=== PATIENT | female | born 1980 | race Caucasian/White ===

== ENCOUNTER 2020-08-28 21:21 | Emergency (ER) | payer OTHER, SELFPAY ==
--- NOTE | ~2020-08-28 | CT_ITS ---
EXAMINATION: CT chest wo con EXAM DATE: 08/29/2020 00:39 INDICATION: Mediastinal mass. TECHNIQUE: Spiral CT of the chest without contrast. Axial, coronal and sagittal images were reviewe d. Coronal maximum intensity pixel images of chest reviewed. The dose-length product (DLP) for this examination was 649.50 mGy-cm. The exposure was tailored according to patient size (auto mA exposur e control), and iterative reconstruction (ASIR) was used as additional dose reduction technique. The re is no prior study for comparison. FINDINGS: Small nodules of ill-defined soft tissue in the anterior mediastinum consistent with thymic residual. The lungs are clear. There are no pleural or pericardial effusions. Tracheobronchial t ree is patent. There is no mediastinal, hilar or axillary lymphadenopathy. There is no pneumothor ax. Heart normal in size. No evidence of coronary arterial calcification. Upper abdomen is unrem arkable. There is mild thoracic spondylosis without osteoblastic or osteolytic lesions identified. IMPRESSION: 1. Small soft tissue densities anterior mediastinum consistent with residual thymic tissue. Reviewed, dictated and finalized at location A. P TECHNICIAN IMPRESSION: 1. Small soft tissue densities anterior mediastinum consistent with residual t hymic tissue.
--- NOTE | ~2020-08-28 | CT_ITS ---
EXAMINATION: CT abdomen pelvis wo con DATE: 08/28/2020 23:17 INDICATION: Flank pain TECHNIQUE: Computed tomography (CT) of the abdomen and pelvis was performed without intravenous contr ast. Automated exposure control and iterative reconstruction technique were employed. The dose-length product was 1495.57 mGy-cm. COMPARISON: None FINDINGS: Lung bases are clear. Heart size is normal. No pericardial or pleural effusion. Partially visualized a small amount of soft tissue density interspersed with fat anterior to the ascending thoracic aorta which could represent residual thymic tissue. Small region of focal hepatic steatosis at the ligament um teres. Gallbladder, spleen, pancreas, bilateral adrenal glands and kidneys are normal. No urolithi asis or hydronephrosis. 1.5 cm cyst/follicle and small amount of likely physiologic fluid at the left adnexa. Bladder, anteverted uterus and right adnexa are unremarkable. There are few sigmoid divertic henny without adjacent inflammatory change to suggest diverticulitis. Small bowel and appendix are norm al. No pathologically enlarged abdominal or pelvic lymphadenopathy. Mild lumbar and moderate lower th oracic spondylosis. IMPRESSION: 1. No urolithiasis, hydronephrosis or other acute intra-abdominal/pelvic process. 2. Small amount of soft tissue density interspersed with fat likely partially visualized in the anter ior mediastinum and likely representing residual thymic tissue. Could consider follow-up low-dose non contrast chest CT for more complete evaluation. Reviewed, dictated and finalized at location A. WELL PUMPER IMPRESSION: 1. No urolithiasis, hydronephrosis or other acute intra-abdominal/pelvic proces s. 2. Small amount of soft tissue density interspersed with fat likely partially v isualized in the anterior mediastinum and likely representing residual thymic t issue. Could consider follow-up low-dose noncontrast chest CT for more complete evaluation.
[2020-08-28 21:25] VITALS: BP 137/90; PULSE 95; RESP 18; TEMP 36.4; O2SAT 98
[2020-08-28 21:52] LABS: Add Urine Microscopic? YES; Appearance Urine Clear (Clear); Bilirubin Urine Negative (Negative); Blood Urine Negative (Negative); Color Urine Yellow (Yellow); Glucose Urine UA Negative (Negative); Ketones Urine Negative (Negative); Leukocyte Esterase Ur 1+ LEU/UL (Negative); Mucus Urine Rare /lpf; Nitrate Urine Negative (Negative); Protein Urine Negative (Negative); RBC Urine 0-2 /hpf (0-2); Specific Grav Ur 1.019 (1.001-1.035); Squamous Epithelial Cell Urine Few /hpf (Few); Urobilinogen Urine Negative mg/dL (<2.0); WBC Urine 0-3 /hpf
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
--- NOTE | 2020-08-29 01:19 | PC.NURSE ---
per shireen chino, do not give med ordered to pt at this time.
[2020-08-29 01:20] VITALS: BP 108/68; PULSE 78; RESP 22; O2SAT 99
== END 2020-08-29 01:21 | disposition home or self-care (01) ==
PROVIDERS: Emergency Provider Emergency Medicine; PCP Internal Medicine Infectious Disease
DX: M54.5 Low back pain (principal)
CPT/HCPCS: 71250; 74176; 81001; 81025; 99284

== ENCOUNTER 2021-10-08 16:29 | Emergency (ER) | payer OTHER, SELFPAY ==
--- NOTE | ~2021-10-08 | CT_ITS ---
EXAMINATION: CT abdomen pelvis w con INDICATION: Left CVA tenderness and left lower quadrant pain TECHNIQUE: Computed tomographic images of the abdomen and pelvis were obtained after the administrati on of 100 cc of Omnipaque 350 intravenous contrast. The dose-length product (DLP) was 1474.80 mGy-cm. Automated exposure control and iterative reconstruction technique were employed. COMPARISON: 08/28/2020 FINDINGS: The lung bases are clear. The heart size is normal. The liver, spleen, pancreas, gallbladde r, and adrenal glands are normal. The kidneys are unremarkable. No stones are identified in the kidne ys, ureters, or bladder. There is no hydronephrosis or hydroureter. No pathologically enlarged abdomi nal or pelvic lymph nodes are identified. There is no free intraperitoneal gas or evidence of bowel o bstruction. The mobile cecum is in the left midabdomen. The appendix is normal. IMPRESSION: 1. No CT correlate for the patient's symptoms. Reviewed, dictated and finalized at location F. SORTER
[2021-10-08 16:31] VITALS: BP 144/87; PULSE 89; RESP 16; TEMP 36.2; O2SAT 100
--- NOTE | 2021-10-08 16:50 | ED.GENADULT ---
HPI - General Adult General Chief complaint: Back Pain/Injury Stated complaint: L FLANK/ABD PAIN X3D Time Seen by Provider: 10/08/21 16:34 Source: patient and RN notes reviewed Limitations: no limitations History of Present Illness HPI narrative: 41-year-old female with history of urinary tract infection presenting to the emergency department for evaluation of left flank pain with associated lower abdominal pain. Patient states symptoms have been ongoing for the past 2 days. Patient states that this is typical of her urinary tract symptoms including the flank pain. Patient denies any prior history of kidney stones. Patient denies any vaginal discharge. Patient states she did have some possible blood in her urine today. Related Data Home Medications Medication Instructions Recorded Confirmed albuterol sulfate INHALATION 08/28/20 famotidine 08/28/20 fluticasone propionate INTRANASAL 08/28/20 Allergies Allergy/AdvReac Type Severity Reaction Status Date / Time No Known Allergies Allergy Verified 08/28/20 21:28 Review of Systems Review of Systems: CONSTITUTIONAL: Denies fever, chills, or sweats. EYES: Denies visual changes, redness, or discharge. ENT: Denies rhinorrhea, congestion, sore throat, or otalgia. CARDIOVASCULAR: Denies chest pain, palpitations, or edema. RESPIRATORY: Denies cough or dyspnea. GASTROINTESTINAL: Left flank pain, left lower abdominal pain and burning with urination GENITOURINARY: Does report some burning with urination and possible hematuria SKIN: Denies rash or itching. MUSCULOSKELETAL: Denies back pain, joint pain, or myalgia. NEUROLOGIC: Denies headache, numbness, or weakness. PSYCHIATRIC: Denies anxiety or depression. [facility] Social History Social History (Updated 08/28/20 @ 23:53 by lAan Harper PA-C) Smoking status: Never smoker Exam Narrative: APPEARANCE: Well appearing, no pain in distress, well-nourished. HEAD: normocephalic, atraumatic. EYES: PERRLA/EOMI, conjunctivae clear. NOSE: Normal no drainage EARS:TMS clear with good light reflex. THROAT: Pharynx clear, no exudate. NECK: Supple. No adenopathy, no masses. RESPIRATORY: Airway patent, respirations nonlabored. Clear to auscultation bilaterally, no rales, rhonchi, wheezing. CARDIOVASCULAR: Regular rate and rhythm without murmurs rubs or gallops. ABDOMINAL: Soft normal bowel sounds, left flank pain and left lower quadrant tenderness to palpation. MUSCULOSKELETAL: Moves all extremities. Strength/ROM intact, No edema, No calf tenderness. NEURO: Alert. Cranial nerves II through XII intact. Good gait. Good coordination SKIN: Warm, dry. Normal Color PSYCHIATRIC: Normal affect/mood. Course Course Emergency Course: Patient was updated of the plan for UA. Patient's UA was indicative of a urinary tract infection. CT scan was ordered to rule out any underlying pathology. CT scan was negative. Patient was updated on the pulse for labs and imaging. Patient was also encouraged to return to the emergency department if she had any worsening symptoms. All questions and concerns were addressed patient was in no distress at time of discharge from emergency room. Vital Signs Vital signs: Vital Signs Temperature 97.2 F L 10/08/21 16:31 Pulse Rate 89 10/08/21 16:31 Respiratory Rate 16 10/08/21 16:31 Blood Pressure 144/87 H 10/08/21 16:31 Pulse Oximetry 100 10/08/21 16:31 Temperature 97.2 F L 10/08/21 16:31 Pulse Rate 81 10/08/21 20:19 Respiratory Rate 18 10/08/21 20:19 Blood Pressure 144/87 H 10/08/21 16:31 Pulse Oximetry 100 10/08/21 16:31 Medical Decision Making Vital Signs Vital Signs: Vital Signs Temperature 97.2 F L 10/08/21 16:31 Pulse Rate 89 10/08/21 16:31 Respiratory Rate 16 10/08/21 16:31 Blood Pressure 144/87 H 10/08/21 16:31 Pulse Oximetry 100 10/08/21 16:31 Temperature 97.2 F L 10/08/21 16:31 Pulse Rate 81 10/08/21 20:19 Respiratory Rate 18 10/08/21
[2021-10-08 16:56] LABS: Add Urine Microscopic? YES; Appearance Urine Cloudy (Clear); Bilirubin Urine Negative (Negative); Blood Urine Negative (Negative); Color Urine Yellow (Yellow); Glucose Urine UA Negative (Negative); Ketones Urine Negative (Negative); Leukocyte Esterase Ur Negative LEU/UL (Negative); Mucus Urine Rare /lpf; Nitrate Urine Negative (Negative); Protein Urine Negative (Negative); RBC Urine 0-2 /hpf (0-2); Specific Grav Ur 1.017 (1.001-1.035); Squamous Epithelial Cell Urine Few /hpf (Few); Urobilinogen Urine Negative mg/dL (<2.0); WBC Urine 0-3 /hpf
[2021-10-08] MEDS: HYDROmorphone HCL INJ (*CRX) 1 MG/ML SYR 0.5 MG IV PUSH (17:35)
[2021-10-08] MEDS: SODIUM CHLORIDE 0.9% IV 1,000 ML 999 ML IV CONT (17:36)
[2021-10-08 17:50] LABS: Basophils Absolute Auto 0.1 K/mm3 (0.0-0.1); Basophils Percent Auto 0.7 % (0.2-1.2); Eosinophils Absolute Auto 0.4 K/mm3 (0-0.3); Eosinophils Percent Auto 3.1 % (0-4.4); Hematocrit 44.9 % (37.0-47.0); Hemoglobin 14.5 g/dL (12.0-15.0); Immature Granulocyte Absolute 0.03 K/mm3 (0.00-0.031); Immature Granulocyte Percent A 0.2 % (0-0.5); Lymphocytes Absolute Auto 2.38 K/mm3 (0.9-3.2); Lymphocytes Percent Auto 19.1 % (18.3-44.2); Mean Corpuscular HGB Conc 32.3 g/dl (32-36); Mean Corpuscular Hemoglobin 30.5 pg (26-34); Mean Corpuscular Volume 94.3 fl (80-100); Mean Platelet Volume 11.1 fl (7.4-10.4); Monocytes Absolute Auto 0.8 K/mm3 (0.1-0.6); Neutrophils Absolute Auto 8.9 K/mm3 (1.3-6.7); Neutrophils Percent Auto 70.9 % (45.5-73.1); Platelet Count Result 322 k/mm3 (150-375); Red Blood Count 4.76 M/mm3 (4.2-5.4); Red Cell Distribution Width 12.4 % (11.5-14.5); White Blood Count 12.5 K/mm3 (4.5-10.0)
[2021-10-08 18:33] LABS: Alanine Aminotransferase 35 U/L (4-35); Albumin Level 3.7 g/dL (3.5-5.1); Alkaline Phosphatase 100 U/L (38-126); Anion Gap 6 mmol/L (8-16); Aspartate Amino Transferase 28 U/L (14-36); Bilirubin,Total 0.5 mg/dL (0.2-1.3); Blood Urea Nitrogen 12 mg/dL (7-17); Calcium 8.2 mg/dL (8.4-10.2); Carbon Dioxide 28 mmol/L (22-30); Chloride 106 mmol/L (98-107); Estimated CRCL calculation 132 ml/min; Estimated Glomerular Filt Rate > 60; Glucose 105 mg/dL (65-110); Potassium 3.8 mmol/L (3.4-5.0); Sodium 140 mmol/L (137-145)
[2021-10-08 20:19] VITALS: PULSE 81; RESP 18
== END 2021-10-08 20:19 | disposition home or self-care (01) ==
PROVIDERS: Emergency Provider Emergency Medicine; PCP Internal Medicine Infectious Disease
DX: R10.32 Left lower quadrant pain (principal)
CPT/HCPCS: 36415; 74177; 80053; 81001; 81025; 85025; 96361; 96374; 99284; J1170; J7030; Q9967

== ENCOUNTER 2022-04-27 12:39 | Emergency (ER) | payer OTHER, SELFPAY ==
[2022-04-27 12:41] VITALS: BP 138/81; PULSE 64; RESP 16; TEMP 36.2; O2SAT 100
[2022-04-27 13:31] LABS: SARS-CoV-2 RNA PCR Positive
--- NOTE | 2022-04-27 13:56 | ED.GENADULT ---
HPI - General Adult General Chief complaint: Unspecified Stated complaint: wants covid test Time Seen by Provider: 04/27/22 13:14 Source: RN notes reviewed History of Present Illness HPI narrative: Patient presents emergency department from home for COVID-19. Patient states that yesterday she began to have symptoms with bilateral ear pain rhinorrhea and a sore throat states has had a mild cough this been nonproductive she denies any known fever chills chest pain shortness of breath abdominal pain nausea vomiting. States she took a home COVID test that was positive but was afraid it might be a false positive again in the emergency department for repeat evaluation she denies taking medication for the symptoms. Patient states she did receive the COVID vaccination Related Data Home Medications Medication Instructions Recorded Confirmed albuterol sulfate 90 mcg/actuation inhalation 08/28/20 02/12/22 aerosol inhaler famotidine 20 mg tablet 08/28/20 02/12/22 fluticasone propionate 50 intranasal 08/28/20 02/12/22 mcg/actuation nasal spray,suspension Allergies Allergy/AdvReac Type Severity Reaction Status Date / Time No Known Allergies Allergy Verified 02/12/22 09:00 Review of Systems Review of Systems: Gen.: Denies fevers or chills Eyes: Denies eye pain or visual change ENT: See HPI Respiratory: Denies shortness of breath reports nonproductive cough CV: Denies chest pain or palpitations GI: Denies abdominal pain nausea, emesis Musculoskeletal: Denies back pain or muscle pain Neuro: Denies numbness, tingling, weakness or focal weakness Skin: Denies rash Except as documented, all other systems reviewed and negative [facility] Past Medical History Medical History Asthma Depression Surgical History Surgical History History of 07/29/02 11/27/07 11/20/10 w/BTL History of endometrial ablation 03/16/14 hscope d&c/novasure ablation History of hysteroscopy 08/28/01 hscope d&c History of tubal ligation 11/20/10 Family History Family History Grandparent Heart disease maternal grandmother Hypertension maternal grandmother Diabetes mellitus maternal grandfather Mother Hypertension Other Diabetes mellitus paternal aunt Social History Social History Smoking packs per day: 1 Smoking cigarettes per day: 20.0 Smoking status: Current every day smoker Tobacco type: cigarettes Alcohol intake: never Substance use: never Substance use type: does not use Additional living arrangements comments: 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 CARDIOVASCULAR: Regular rate and rhythm without murmurs rubs or gallops. ABDOMINAL: Soft, nontender, nondistended, no rebound or guarding MUSCULOSKELETAl: Moves all extremities. No clubbing, cyanosis or edema. NEURO: Awake and alert. Following commands, speech normal, no focal deficits SKIN:: Warm, dry. No rashes lesions or abrasions PSYCHIATRIC: Normal affect/mood, Course Course Emergency Course: Discussed with patient results of workup and diagnosis. Discussed need for follow-up with primary care, proper use of medication, and reasons to return to the emergency department. Venkatesh
== END 2022-04-27 14:14 | disposition home or self-care (01) ==
LOC: ANHED 14:06
PROVIDERS: Emergency Provider Emergency Medicine; PCP Internal Medicine Infectious Disease
DX: U07.1 COVID-19 (principal); J45.909 Unspecified asthma, uncomplicated; F17.210 Nicotine dependence, cigarettes, uncomplicated
CPT/HCPCS: 99283; C9803; U0003; U0005

== ENCOUNTER 2022-05-09 20:50 | Emergency (ER) | payer OTHER, SELFPAY ==
[2022-05-09 20:52] VITALS: BP 145/90; PULSE 74; RESP 18; TEMP 36.2; O2SAT 100
--- NOTE | 2022-05-09 21:39 | ED.GENADULT ---
HPI - General Adult General Chief complaint: Upper Respiratory Infection Stated complaint: ear pain, URI Time Seen by Provider: 05/09/22 20:59 History of Present Illness HPI narrative: 42-year-old female presents emergency room complaining of bilateral ear pain. She states been going for couple days. She is has some congestion. She was positive for COVID about 2 weeks ago. She denies any chest pain or cough or shortness of breath this time. Denies any history of recurrent ear problems in the past. Related Data Home Medications Medication Instructions Recorded Confirmed albuterol sulfate 90 mcg/actuation inhalation 08/28/20 02/12/22 aerosol inhaler famotidine 20 mg tablet 08/28/20 02/12/22 fluticasone propionate 50 intranasal 08/28/20 02/12/22 mcg/actuation nasal spray,suspension Allergies Allergy/AdvReac Type Severity Reaction Status Date / Time No Known Allergies Allergy Verified 05/09/22 20:57 Review of Systems Review of Systems: CONSTITUTIONAL: Denies fever, chills, or sweats. EYES: Denies visual changes, redness, or discharge. ENT: Denies rhinorrhea, congestion, sore throat. Complaining of ear pain left greater than right CARDIOVASCULAR: Denies chest pain, palpitations, or edema. RESPIRATORY: Denies cough or dyspnea. GASTROINTESTINAL: Denies abdominal pain, nausea, vomiting, or diarrhea. GENITOURINARY: Denies dysuria or hematuria. SKIN: Denies rash or itching. MUSCULOSKELETAL: Denies back pain, joint pain, or myalgia. NEUROLOGIC: Denies headache, numbness, or weakness. PSYCHIATRIC: Denies anxiety or depression. [facility], [facility] Past Medical History Medical History Asthma Depression Surgical History Surgical History History of 07/29/02 11/27/07 11/20/10 w/BTL History of endometrial ablation 03/16/14 hscope d&c/novasure ablation History of hysteroscopy 08/28/01 hscope d&c History of tubal ligation 11/20/10 Family History Family History Grandparent Heart disease maternal grandmother Hypertension maternal grandmother Diabetes mellitus maternal grandfather Mother Hypertension Other Diabetes mellitus paternal aunt Social History Social History Smoking packs per day: 1 Smoking cigarettes per day: 20.0 Smoking status: Current every day smoker Tobacco type: cigarettes Alcohol intake: never Substance use: never Substance use type: does not use Additional living arrangements comments: 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 Head Normocephalic and atraumatic. EYES: PERRLA/EOMI, conjunctivae clear. NOSE: Normal with no drainage EARS: Unable to visualize left TM secondary to cerumen impaction. Right TM is noted to be dull. THROAT: Pharynx clear, no exudate. NECK: Supple. No adenopathy, no masses. RESPIRATORY: Airway patent, respirations nonlabored. Clear to auscultation bilaterally, no rales, rhonchi, wheezing. CARDIOVASCULAR: Regular rate and rhythm without murmurs, rubs, or gallops. ABDOMINAL: Soft, nontender, nondistended, no hepatosplenomegaly Musculoskeletal: Moves all extremities. Strength/ROM intact, No edema, No calf tenderness. NEURO: Alert. Cranial nerves II through XII intact. Normal gait. Good coordination. Nonfocal examination. SKIN:: Warm, dry. Normal Color PSYCHIATRIC: Normal affect/mood, normal interaction Course Vital Signs Vital signs: Vital Signs Temperature 97.1 F L 05/09/22 20:52 Pulse Rate 74 05/09/22 20:52 Respiratory Rate 18 05/09/22 20:52 Bloo
[2022-05-09 22:18] VITALS: BP 133/70; PULSE 80; RESP 16; TEMP 36.3; O2SAT 100
--- NOTE | 2022-06-15 18:25 | PC.NURSE ---
left ear irrigated with warm water per ERP, small amounts of yellow debris flushed out
--- NOTE | 2022-06-15 18:27 | PC.NURSE ---
Addendum entered by Bertha Burns RN 06/15/22 18:28: this procedure occurred 05/09/22 during ED visit Original Note: left ear irrigated with warm water. Small amount yellow debris flushed from ear
== END 2022-05-09 22:19 | disposition home or self-care (01) ==
PROVIDERS: Emergency Provider Emergency Medicine; PCP Internal Medicine Infectious Disease
DX: H61.22 Impacted cerumen, left ear (principal); H92.02 Otalgia, left ear; J45.909 Unspecified asthma, uncomplicated; Z86.16 Personal history of COVID-19; F17.210 Nicotine dependence, cigarettes, uncomplicated
CPT/HCPCS: 69209; 99283

== ENCOUNTER 2022-08-03 01:24 | Emergency (ER) | payer OTHER, SELFPAY ==
[2022-08-03] VITALS (10 sets, daily range): BP systolic 109–138; BP diastolic 64–92; PULSE 64–86; RESP 16–18; TEMP 36.1–36.8; O2SAT 96–99
--- NOTE | ~2022-08-03 | US_ITS ---
US transvaginal DATE: 08/03/2022 09:50 INDICATION: Left lower quadrant abdominal pain TECHNIQUE: Real-time imaging via transvaginal approach COMPARISON: 08/03/2022 CT abdomen pelvis FINDINGS: The uterus measures 8.1 cm height, 5.7 cm transverse and 4.1 cm AP dimension. There is an approximately 6 x 6.9 mm cystic collection in the fundus, with through transmission poste rior enhancement. Cervical nabothian cysts of the uterus are noted. Septated right ovarian cyst measures approximately 3.3 x 2.6 x 3.7 cm dimension. The ovaries are othe rwise unremarkable, with vascular flow. No pelvic mass or abnormal free pelvic fluid collection is noted. IMPRESSION: Septated up to 3.7 cm right ovarian cyst Reviewed, dictated and finalized at [facility]. Reviewed, dictated and finalized at location A. RUCTIONAL FACILITATOR
--- NOTE | ~2022-08-03 | CT_ITS ---
EXAMINATION: CT abdomen pelvis w con DATE: 08/03/2022 03:13 INDICATION: Left lower quadrant abdominal pain, nausea, vomiting. Vaginal bleeding. TECHNIQUE: Computed tomography (CT) of the abdomen and pelvis was performed with 100 CC Omnipaque 350 intravenous contrast. Automated exposure control and iterative reconstruction technique were employe d. Exam dose: 1520.67 mGy-cm total exam DLP. COMPARISON: 08/03/2022 CT abdomen pelvis FINDINGS: The lung bases are clear. Normal heart size. No pericardial or pleural effusion. There is circumferential soft tissue thickening of the distal esophagus which may be due to esophagit is. Recommend clinical correlation and perhaps further workup as clinically appropriate. No hepatic, splenic, pancreatic, and adrenal or renal space-occupying mass lesion is detected. Normal caliber of the abdominal aorta. No intraperitoneal or retroperitoneal or pelvic mass lesion or adenopathy or ascites. The urinary bladder, uterus and left ovary are unremarkable. Septated approximately 3.5 cm right ovarian cyst. No bowel obstruction, bowel wall thickening, pneumatosis or intraperitoneal free air. No evidence of appendicitis. There is retained cecal mesentery with medially directed cecum which overlies the mid l ower abdomen, the appendix situated in the anterior left lower quadrant. Diverticulosis of the colon; no CT evidence of diverticulitis. Degenerative spurring of the lower thoracic spine. No suspicious osteolytic or osteoblastic lesions. There is bilateral hip osteoarthritis. IMPRESSION: Septated 3.5 cm right ovarian cyst Normal appendix, situated in the anterior left lower quadrant Mild colonic diverticulosis; no CT evidence of diverticulitis Reviewed, dictated and finalized at [facility]. Reviewed, dictated and finalized at location A. INE MILKER
[2022-08-03 01:26] LABS: Basophils Absolute Auto 0.1 K/mm3 (0.0-0.1); Basophils Percent Auto 0.6 % (0.2-1.2); Eosinophils Absolute Auto 0.3 K/mm3 (0-0.3); Eosinophils Percent Auto 1.4 % (0-4.4); Hematocrit 42.8 % (37.0-47.0); Immature Granulocyte Absolute 0.07 K/mm3 (0.00-0.031); Immature Granulocyte Percent A 0.4 % (0-0.5); Lymphocytes Absolute Auto 2.43 K/mm3 (0.9-3.2); Lymphocytes Percent Auto 13.5 % (18.3-44.2); Mean Corpuscular HGB Conc 32.7 g/dl (32-36); Mean Corpuscular Hemoglobin 30.3 pg (26-34); Mean Corpuscular Volume 92.6 fl (80-100); Monocytes Percent Auto 5.7 % (2.6-8.5); Neutrophils Absolute Auto 14.1 K/mm3 (1.3-6.7); Neutrophils Percent Auto 78.4 % (45.5-73.1); Platelet Count Result 272 k/mm3 (150-375); Red Blood Count 4.62 M/mm3 (4.2-5.4); Red Cell Distribution Width 13.1 % (11.5-14.5)
[2022-08-03 01:29] LABS: Add Urine Microscopic? YES; Appearance Urine Clear (Clear); Bilirubin Urine Negative (Negative); Blood Urine Negative (Negative); Color Urine Yellow (Yellow); Glucose Urine UA Negative (Negative); Ketones Urine Negative (Negative); Leukocyte Esterase Ur 1+ LEU/UL (Negative); Nitrate Urine Negative (Negative); Protein Urine Trace mg/dL (Negative); Specific Grav Ur >= 1.030 (1.001-1.035); Urobilinogen Urine 0.2 mg/dL (<2.0); pH Urine 5.5 (5.0-9.0)
[2022-08-03 01:33] LABS: Mucus Urine Rare /lpf; Squamous Epithelial Cell Urine Moderate /hpf (Few); WBC Urine 31-50 /hpf
[2022-08-03 01:36] LABS: Alanine Aminotransferase 48 U/L (6-35); Albumin Level 4.1 g/dL (3.5-5.1); Alkaline Phosphatase 90 U/L (38-126); Anion Gap 13 mmol/L (8-16); Aspartate Amino Transferase 30 U/L (14-36); Bilirubin,Total 0.6 mg/dL (0.2-1.3); Blood Urea Nitrogen 15 mg/dL (7-17); Calcium 8.7 mg/dL (8.4-10.2); Carbon Dioxide 26 mmol/L (22-30); Chloride 102 mmol/L (98-107); Estimated CRCL calculation 138 ml/min; Estimated Glomerular Filt Rate > 60; Glucose 108 mg/dL (65-110); Potassium 3.9 mmol/L (3.4-5.0); Sodium 141 mmol/L (137-145)
[2022-08-03 01:52] LABS: Beta HCG Quantitative < 2.39 mIU/ML
--- NOTE | 2022-08-03 02:10 | ED.GENADULT ---
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 Pain patient says that she started to have left lower quadrant pain that started 2 days ago while she was having intercourse. Patient says the pain radiates to her back as 10 out 10 intensity and getting worse. She has never experienced periods. The pain like this before. Is improved by curling into a ball there are no exacerbating factors. She has had multiple episodes of nausea and vomiting. She denies fever, chills, diarrhea. Patient says that she has had a new sexual partner and she has been having vaginal discharge and spotting for 2 days. Patient denies any history of STDs. <Maxwell Parrish MD - Last Filed: 08/03/22 06:02> Related Data Home medications: Home Medications Medication Instructions Recorded Confirmed albuterol sulfate 90 mcg/actuation inhalation 08/28/20 02/12/22 aerosol inhaler famotidine 20 mg tablet 08/28/20 02/12/22 fluticasone propionate 50 intranasal 08/28/20 02/12/22 mcg/actuation nasal spray,suspension <Maxwell Parrish MD - Last Filed: 08/03/22 06:02> Allergies/adverse reactions: Allergies Allergy/AdvReac Type Severity Reaction Status Date / Time silver sulfadiazine AdvReac Rash Verified 08/03/22 01:32 CDT [From Susana] <Maxwell Parrish MD - Last Filed: 08/03/22 06:02> Review of Systems Review of Systems: CONSTITUTIONAL: Denies night sweats. EYES: No eye pain ENT: Denies rhinorrhea CARDIOVASCULAR: Denies palpitations RESPIRATORY: Denies hemoptysis GASTROINTESTINAL: Denies hematemesis GENITOURINARY: Denies hematuria. SKIN: Denies rash MUSCULOSKELETAL: Denies myalgia. NEUROLOGIC: Denies weakness. PSYCHIATRIC: Denies delusions <Maxwell Parrish MD - Last Filed: 08/03/22 06:02> [facility] Past Medical History Medical History: Medical History Asthma Depression <Maxwell Parrish MD - Last Filed: 08/03/22 06:02> Surgical History Surgical History: Surgical History History of 07/29/02 11/27/07 11/20/10 w/BTL History of endometrial ablation 03/16/14 hscope d&c/novasure ablation History of hysteroscopy 08/28/01 hscope d&c History of tubal ligation 11/20/10 <Maxwell Parrish MD - Last Filed: 08/03/22 06:02> Family History Family History: Family History Grandparent Heart disease maternal grandmother Hypertension maternal grandmother Diabetes mellitus maternal grandfather Mother Hypertension Other Diabetes mellitus paternal aunt <Maxwell Parrish MD - Last Filed: 08/03/22 06:02> Social History Social History: Social History Smoking packs per day: 1 Smoking cigarettes per day: 20.0 Smoking status: Current every day smoker Tobacco type: cigarettes Alcohol intake: never Substance use: never Substance use type: does not use Additional living arrangements comments: 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 Head: atraumatic. EYES: EOMI, NOSE: Atraumatic NECK: Trachea midline RESPIRATORY: No increased rate of breathing CARDIOVASCULAR: RRR, ABDOMINAL: Obese, non-distended,
--- NOTE | 2022-08-03 02:58 | PC.NURSE ---
Patient taken to CT via stretcher at this time.
[2022-08-03] MEDS: SODIUM CHLORIDE 0.9% IV 1,000 ML 999 ML IV CONT (05:29)
[2022-08-03] MEDS: metroNIDAZOLE 500 MG/ISO 100ML 500 MG/100 ML BAG 100 MG IVPB (05:29)
[2022-08-03] MEDS: cefTRIAXone 0.5 GM in DEXTROSE 5% IN WATER 50 ML IVPB (05:46)
[2022-08-03] MEDS: HYDROmorphone HCL INJ (*CRX) 1 MG/ML SYR 0.5 MG IV PUSH (06:06)
[2022-08-03] MEDS: DOXYCYCLINE 100 MG/NS 100 ML 100 MG/100 ML BAG IVPB (07:09)
--- NOTE | 2022-08-03 07:50 | PC.NURSE ---
Pt at US at this time.
--- NOTE | 2022-08-03 11:07 | PC.NURSE ---
1100 Assumed pt care from LAVERNE Zabala
== END 2022-08-03 12:32 | disposition home or self-care (01) ==
PROVIDERS: Emergency Medicine; Physician Assistant; Emergency Provider Emergency Medicine; PCP Internal Medicine Infectious Disease
DX: N73.0 Acute parametritis and pelvic cellulitis (principal); J45.909 Unspecified asthma, uncomplicated; F17.210 Nicotine dependence, cigarettes, uncomplicated; N83.201 Unspecified ovarian cyst, right side
CPT/HCPCS: 36415; 74177; 76830; 80053; 81001; 81025; 84702; 85025; 87086; 87088; 87147; 87205; 87491; 87591; 87808; 96365; 96366; 96367; 96368; 96375; 99284; J0696; J1170; J7030; Q9967

== ENCOUNTER 2022-09-29 22:15 | Emergency (ER) | payer OTHER, SELFPAY ==
--- NOTE | ~2022-09-29 | XR_ITS ---
Portable chest x-ray Comparison: 07/04/2009 Clinical History: Dizziness, headache Findings: Lungs are clear, without focal consolidation or pleural effusion. Cardiomediastinal silho uette is stable. Bones and soft tissues are unremarkable. Impression: Normal chest. Reviewed, dictated and finalized at [facility]. K OFF PERSON Impression: Normal chest.
--- NOTE | ~2022-09-29 | CT_ITS ---
CT Abdomen and Pelvis with contrast. History: Abdominal pain. Spiral CT of the abdomen and pelvis was performed after the administration of intravenous contrast. 1 00 cc of Omnipaque 350 was administered intravenously without complication. Dose reduction technique was used on this scan by utilizing automated exposure control and iterative reconstruction technique. The dose-length product (DLP) was 1454.54 mGy-cm. COMPARISON: 08/03/2022 Findings: Scans through the lung bases demonstrate mild atelectatic change. The liver, spleen, pancreas, gallbladder, adrenals and kidneys are within normal limits. No evidence of aortic aneurysm. No lymphadenopathy is seen. There is no evidence of bowel obstruction. There is no evidence to suggest acute appendicitis or dive rticulitis. Images through the pelvis were performed. Urinary bladder unremarkable. No adnexal mass seen. No asci thomas. No ascites is seen. Impression: No significant abnormality seen. Reviewed, dictated and finalized at [facility]. STRIAL COFFEE GRINDER Impression: No significant abnormality seen.
--- NOTE | ~2022-09-29 | CT_ITS ---
Non-contrast Head CT History: Headache Technique: Axial non-contrast imaging of the brain was performed. Dose reduction technique was used on this scan by utilizing automated exposure control and iterative reconstruction technique. The dose -length product (DLP) was 681.00 mGy-cm. Findings: There is no evidence of intracranial hemorrhage, mass lesion, or acute infarct. Brain par enchyma appears normal. The ventricles and subarachnoid spaces are normal in size. The calvarium ap pears normal. The visualized paranasal sinuses and mastoid air cells are clear. Impression: No significant abnormality seen. Reviewed, dictated and finalized at location . E WRANGLER Impression: No significant abnormality seen.
[2022-09-29 22:18] VITALS: BP 127/78; PULSE 71; RESP 16; TEMP 36.6; O2SAT 99
--- NOTE | 2022-09-30 01:19 | PC.NURSE ---
Pt brought back to Triage for lab draw and urine collection. After one unsuccessful attempt pt decline another try for blood draw at this time.
[2022-09-30 01:27] LABS: Add Urine Microscopic? YES; Appearance Urine Slightly Cloudy (Clear); Bilirubin Urine Negative (Negative); Blood Urine Negative (Negative); Color Urine Yellow (Yellow); Glucose Urine UA Negative (Negative); Ketones Urine Trace mg/dL (Negative); Leukocyte Esterase Ur Negative LEU/UL (Negative); Nitrate Urine Negative (Negative); Protein Urine Negative (Negative); Specific Grav Ur 1.025 (1.001-1.035); Urobilinogen Urine 0.2 mg/dL (<2.0)
[2022-09-30 01:37] LABS: Bacteria Urine Trace /hpf; Mucus Urine Rare /lpf; RBC Urine 0-2 /hpf (0-2); Squamous Epithelial Cell Urine Few /hpf (Few); WBC Urine 0-3 /hpf
[2022-09-30 01:41] VITALS: BP 137/88; PULSE 64; PULSE 66; RESP 12; O2SAT 100
[2022-09-30 01:58] LABS: Basophils Absolute Auto 0.1 K/mm3 (0.0-0.1); Basophils Percent Auto 0.9 % (0.2-1.2); Eosinophils Absolute Auto 0.3 K/mm3 (0-0.3); Hematocrit 41.9 % (37.0-47.0); Hemoglobin 13.3 g/dL (12.0-15.0); Immature Granulocyte Absolute 0.02 K/mm3 (0.00-0.031); Immature Granulocyte Percent A 0.2 % (0-0.5); Lymphocytes Absolute Auto 2.65 K/mm3 (0.9-3.2); Lymphocytes Percent Auto 27.1 % (18.3-44.2); Mean Corpuscular HGB Conc 31.7 g/dl (32-36); Mean Corpuscular Hemoglobin 30.1 pg (26-34); Mean Corpuscular Volume 94.8 fl (80-100); Mean Platelet Volume 10.5 fl (7.4-10.4); Monocytes Absolute Auto 0.5 K/mm3 (0.1-0.6); Monocytes Percent Auto 5.4 % (2.6-8.5); Neutrophils Absolute Auto 6.2 K/mm3 (1.3-6.7); Neutrophils Percent Auto 63.4 % (45.5-73.1); Platelet Count Result 304 k/mm3 (150-375); Red Blood Count 4.42 M/mm3 (4.2-5.4); Red Cell Distribution Width 13.1 % (11.5-14.5); White Blood Count 9.8 K/mm3 (4.5-10.0)
--- NOTE | 2022-09-30 02:06 | ECG_ITS ---
Measurements Intervals [place] Rate: 57 P: 53 ND: 184 QRS: 45 QRSD: 95 T: 85 QT: 412 QTc: 402 Interpretive Statements SINUS BRADYCARDIA BORDERLINE ST-T WAVE ABNORMALITY- HIGH LATERAL LEADS BASELINE ARTIFACT- I, II, III, AVR BORDERLINE ECG NO PREVIOUS ECG AVAILABLE FOR COMPARISON Electronically Signed On 09-30-2022 6:41:12 SURVEYOR MINE by Tab Frye D.O.
--- NOTE | 2022-09-30 02:08 | ED.GENADULT ---
HPI - General Adult General Chief complaint: Unspecified Stated complaint: c/o ONTIVEROS, dizziness and abd pain Time Seen by Provider: 09/30/22 02:03 Source: RN notes reviewed History of Present Illness HPI narrative: Patient presents emergency department from home for multiple complaints. Patient states she been having lower abdominal pain for the past 10 days. The pain is located the bilateral lower abdomen does not radiate described as cramping in nature. States nothing makes the pain better or worse. She denies any fevers or chills denies any chest pain or shortness of breath states that she does have some mild nausea but denies any vomiting or diarrhea. Patient also states for the past 2 days she has had a frontal headache she states that the headache is described as aching in nature and has been associate with dizziness dizziness is worse whenever she gets up and improved when she lays down denies any vision changes Related Data Home Medications Medication Instructions Recorded Confirmed albuterol sulfate 90 mcg/actuation inhalation 08/28/20 02/12/22 aerosol inhaler famotidine 20 mg tablet 08/28/20 02/12/22 fluticasone propionate 50 intranasal 08/28/20 02/12/22 mcg/actuation nasal spray,suspension Allergies Allergy/AdvReac Type Severity Reaction Status Date / Time silver sulfadiazine AdvReac Rash Verified 09/04/22 10:10 [From Susana] Review of Systems Review of Systems: Gen.: Denies fevers or chills Eyes: Denies eye pain or visual change ENT: Denies congestion Respiratory: Denies shortness of breath or cough CV: Denies chest pain or palpitations GI see HPI denies burning, urgency, frequency or hematuria Musculoskeletal: Denies back pain or muscle pain Neuro: Reports headache and dizziness Skin: Denies rash Except as documented, all other systems reviewed and negative [facility] Past Medical History Medical History Asthma Depression Surgical History Surgical History History of 07/29/02 11/27/07 11/20/10 w/BTL History of endometrial ablation 03/16/14 hscope d&c/novasure ablation History of hysteroscopy 08/28/01 hscope d&c History of tubal ligation 11/20/10 Family History Family History Grandparent Heart disease maternal grandmother Hypertension maternal grandmother Diabetes mellitus maternal grandfather Mother Hypertension Other Diabetes mellitus paternal aunt Social History Social History Smoking packs per day: 1 Smoking cigarettes per day: 20.0 Smoking status: Current every day smoker Tobacco type: cigarettes Alcohol intake: never Substance use: never Substance use type: does not use Additional living arrangements comments: 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 CARDIOVASCULAR: Regular rate and rhythm without murmurs rubs or gallops. ABDOMINAL: Soft, nondistended tender to palpation right lower quadrant and left lower quadrant no tenderness in the right upper quadrant left upper quadrant no rebound or guard MUSCULOSKELETAl: Moves all extremities. No clubbing, cyanosis or edema. NEURO: Awake and alert x 4. Following commands, speech normal, no focal deficits SKIN:: Warm, dry. No rashes lesions or abrasions PSYCHIATRIC: Normal affect/mo
[2022-09-30 02:09] LABS: Alanine Aminotransferase 43 U/L (6-35); Alkaline Phosphatase 95 U/L (38-126); Anion Gap 4 mmol/L (8-16); Aspartate Amino Transferase 28 U/L (14-36); Bilirubin,Total 0.6 mg/dL (0.2-1.3); Blood Urea Nitrogen 10 mg/dL (7-17); Carbon Dioxide 27 mmol/L (22-30); Chloride 105 mmol/L (98-107); Estimated CRCL calculation 127 ml/min; Estimated Glomerular Filt Rate > 60; Glucose 101 mg/dL (65-110); Lipase 90 U/L (23-300); Potassium 3.8 mmol/L (3.4-5.0); Sodium 136 mmol/L (137-145)
[2022-09-30 02:37] LABS: Troponin I < 0.012 ng/mL (0.000-0.034)
[2022-09-30] MEDS: SODIUM CHLORIDE 0.9% IV 1,000 ML 999 ML IV CONT (02:57)
[2022-09-30] MEDS: KETOROLAC 30 MG/ML VIAL (*BKC) IV PUSH (02:58)
[2022-09-30] MEDS: MECLIZINE HCL 25 MG TABLET PO (02:58)
[2022-09-30] MEDS: ONDANSETRON INJ 4 MG/2 ML VIAL IV PUSH (02:58)
[2022-09-30 04:23] VITALS: BP 109/64; BP 127/84; PULSE 85; PULSE 88
[2022-09-30 04:26] VITALS: BP 117/79; PULSE 79
[2022-09-30 05:07] LABS: Influenza A QL RT-PCR Negative (Negative); Influenza B QL RT-PCR Negative (Negative); SARS-CoV-2 RNA PCR Negative
[2022-09-30 05:08] VITALS: BP 116/73; PULSE 65; RESP 14; O2SAT 99
[2022-09-30 07:18] VITALS: BP 117/79; PULSE 61; RESP 16; O2SAT 100
== END 2022-09-30 07:19 | disposition home or self-care (01) ==
PROVIDERS: Emergency Provider Emergency Medicine; PCP Internal Medicine Infectious Disease
DX: R10.31 Right lower quadrant pain (principal); R10.32 Left lower quadrant pain; R51.9 Headache, unspecified; R42 Dizziness and giddiness; Z79.51 Long term (current) use of inhaled steroids; J45.909 Unspecified asthma, uncomplicated; F17.210 Nicotine dependence, cigarettes, uncomplicated; Z20.822 Contact with and (suspected) exposure to COVID-19
CPT/HCPCS: 36415; 70450; 71045; 74177; 80053; 81001; 81025; 83690; 84484; 85025; 87636; 93005; 96361; 96374; 96375; 99284; A9270; J0131; J1885; J2405; J7030; Q9967

== ENCOUNTER 2023-01-19 08:28 | Emergency (ER) | payer OTHER, SELFPAY ==
--- NOTE | ~2023-01-19 | XR_ITS ---
EXAMINATION: XR lumbar spine 2-3V DATE: 01/19/2023 09:19 INDICATION: Low back pain. Fall. TECHNIQUE: 3 views of lumbar spine were obtained. COMPARISON: Lumbar spine radiographs 09/19/2009 FINDINGS: Bone alignment is normal. There are Schmorl's nodes at multiple levels. There is mildly dec reased disc height at L2-L3. There is multilevel mild facet joint osteoarthritis. IMPRESSION: 1. Mild lumbar spondylosis. Reviewed, dictated and finalized at location A. IMPRESSION: 1. Mild lumbar spondylosis.
[2023-01-19 08:34] VITALS: BP 144/88; PULSE 74; RESP 18; TEMP 36.2; O2SAT 100
--- NOTE | 2023-01-19 10:54 | ED.GENADULT ---
HPI - General Adult General Chief complaint: Fall Stated complaint: fell yesterday - right side pain Time Seen by Provider: 01/19/23 08:32 History of Present Illness HPI narrative: Patient is a 42-year-old female who presents ER with multiple complaints. First complaint is that she has diffuse body aches. She was walking on a sidewalk yesterday when she tripped and fell on her stomach. Since then she has developed low back aching and diffuse body aches. She is taking no medication for this. No fevers or chills or sweats. No focal weakness or numbness in arm or leg. Additional concern is that she may have a sexually transmitted infection. She has noticed new discharge over the last few days. No lower abdominal pain. She has had unprotected sex with several individuals. She has not been told she has actually been exposed to an STD. Related Data Home Medications Medication Instructions Recorded Confirmed albuterol sulfate 90 mcg/actuation inhalation 08/28/20 02/12/22 aerosol inhaler famotidine 20 mg tablet 08/28/20 02/12/22 fluticasone propionate 50 intranasal 08/28/20 02/12/22 mcg/actuation nasal spray,suspension escitalopram oxalate 20 mg tablet 20 mg PO DAILY 10/13/22 (Lexapro) Allergies Allergy/AdvReac Type Severity Reaction Status Date / Time silver sulfadiazine AdvReac Rash Verified 01/19/23 08:38 [From Susana] Review of Systems Review of Systems: All systems reviewed & are unremarkable except as noted in HPI and below Constitutional: Constitutional: Denies chills, Denies fatigue and Denies fever(s) Gastrointestinal: Gastrointestinal: Denies abdominal pain, Denies nausea and Denies vomiting Genitourinary: Genitourinary: Denies nocturia, Denies dysuria, Denies pelvic pain and Reports vaginal discharge Musculoskeletal: Musculoskeletal: Reports back pain, Reports myalgias, Denies arthralgias and Denies joint swelling [facility] Past Medical History Medical History (Updated 01/19/23 @ 10:56 by Glenn Lujan MD) Asthma Depression HSV-1 infection HSV-2 infection Screen for sexually transmitted diseases Surgical History Surgical History History of 07/29/02 11/27/07 11/20/10 w/BTL History of endometrial ablation 03/16/14 hscope d&c/novasure ablation History of hysteroscopy 08/28/01 hscope d&c History of tubal ligation 11/20/10 Family History Family History Grandparent Heart disease maternal grandmother Hypertension maternal grandmother Diabetes mellitus maternal grandfather Mother Hypertension Other Diabetes mellitus paternal aunt Social History Social History (Updated 10/13/22 @ 10:34 by Vanessa Morocho MA) Smoking packs per day: 1 Smoking cigarettes per day: 20.0 Smoking status: Current every day smoker Tobacco type: cigarettes Alcohol intake: never Substance use: never Substance use type: does not use Living arrangements: other Additional living arrangements comments: Occupation/Education: occupation 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 HEAD: Normocephalic, atraumatic. ENT: Mucous membranes moist. CHEST: Clear to auscultation. No respiratory distress. HEART: Regular rate and rhythm. Normal peripheral pulses. ABDOMEN: Soft, nontender, nondistended. : Normal external genitalia, small amount of vaginal discharge with pooling, no vaginal bleeding, cervix closed and nonfriable nontender. Back: No reproducible midline tenderness to T/L-spine. There is bilateral paraspinal muscle discomfort without spasm. No abrasion or bruising. EXTREMITIES: Nor
[2023-01-19] MEDS: WATER, STERILE FOR INJECTION 10 ML VIAL XX (11:11)
[2023-01-19] MEDS: cefTRIAXone 1 GM VIAL 0.5 GM IM (11:11)
== END 2023-01-19 11:25 | disposition home or self-care (01) ==
PROVIDERS: Emergency Provider Emergency Medicine; PCP Internal Medicine Infectious Disease
DX: M79.10 Myalgia, unspecified site (principal); A59.01 Trichomonal vulvovaginitis; Z20.2 Contact with and (suspected) exposure to infections with a predominantly sexual mode of transmission; J45.909 Unspecified asthma, uncomplicated; F32.A Depression, unspecified
CPT/HCPCS: 72100; 81025; 87070; 87491; 87591; 87808; 96372; 99284; J0696

== ENCOUNTER 2023-02-27 17:30 | Emergency (ER) | payer OTHER, SELFPAY ==
--- NOTE | ~2023-02-27 | XR_ITS ---
EXAMINATION: XR knee LT 3V DATE: 02/27/2023 19:29 INDICATION: Left knee pain post fall TECHNIQUE: Anteroposterior, oblique and crosstable lateral views of the left knee were obtained COMPARISON: 10/14/2009 FINDINGS: Alignment is normal. No fracture. Joint spaces appear normal on nonweightbearing imaging. No joint e ffusion/layering lipohemarthrosis. Soft tissues are unremarkable. IMPRESSION: 1. Negative left knee radiographs. Reviewed, dictated and finalized at location A.
--- NOTE | ~2023-02-27 | XR_ITS ---
EXAMINATION: XR wrist LT min 3V DATE: 02/27/2023 19:29 INDICATION: Left wrist pain post fall TECHNIQUE: Posteroanterior, ulnar deviation, oblique, and lateral views of the left wrist were obtain ed. COMPARISON: none FINDINGS: Alignment is normal. No fracture. Joint spaces are relatively preserved. Soft tissues are unremarkabl e. IMPRESSION: 1. Negative left wrist radiographs. Reviewed, dictated and finalized at location A.
[2023-02-27 17:37] VITALS: BP 106/72; PULSE 98; RESP 20; TEMP 36.6; O2SAT 100
--- NOTE | 2023-02-27 20:02 | ED.GENADULT ---
HPI - General Adult General Chief complaint: Fall Stated complaint: fall, left wrist pain, left knee pain Time Seen by Provider: 02/27/23 19:47 History of Present Illness HPI narrative: Patient 42-year-old female who presents the emergency department with chief complaint of fall. The patient states she tripped on some steps landed on all fours the patient did not hit her head denies loss of consciousness denies neck pain. The patient reports she has pain in her left wrist and her left knee. Patient reports she has been ambulatory afterwards patient denies being on any anticoagulants. Related Data Home Medications Medication Instructions Recorded Confirmed albuterol sulfate 90 mcg/actuation inhalation 08/28/20 02/12/22 aerosol inhaler famotidine 20 mg tablet 08/28/20 02/12/22 fluticasone propionate 50 intranasal 08/28/20 02/12/22 mcg/actuation nasal spray,suspension escitalopram oxalate 20 mg tablet 20 mg PO DAILY 10/13/22 (Lexapro) Allergies Allergy/AdvReac Type Severity Reaction Status Date / Time silver sulfadiazine AdvReac Rash Verified 01/19/23 08:38 [From [place]] Review of Systems Review of Systems: A 10 system review of systems was completed on the patient and is negative except for what is stated in the HPI. Nursing and ancillary documentation was reviewed. [facility] Past Medical History Medical History Asthma Depression HSV-1 infection HSV-2 infection Screen for sexually transmitted diseases Surgical History Surgical History History of 07/29/02 11/27/07 11/20/10 w/BTL History of endometrial ablation 03/16/14 hscope d&c/novasure ablation History of hysteroscopy 08/28/01 hscope d&c History of tubal ligation 11/20/10 Family History Family History Grandparent Heart disease maternal grandmother Hypertension maternal grandmother Diabetes mellitus maternal grandfather Mother Hypertension Other Diabetes mellitus paternal aunt Social History Social History Smoking packs per day: 1 Smoking cigarettes per day: 20.0 Smoking status: Current every day smoker Tobacco type: cigarettes Alcohol intake: never Substance use: never Substance use type: does not use Living arrangements: other Additional living arrangements comments: Occupation/Education: occupation 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 HEAD: Normocephalic, atraumatic. EYES: PERRLA and EOMI. ENT: Nares clear, no rhinorrhea or epistaxis. Mucous membranes moist. NECK: Supple. CHEST: Clear to auscultation. No respiratory distress. HEART: Regular rate and rhythm. No murmur heard. Normal peripheral pulses. ABDOMEN: Soft, nontender, nondistended, normal active bowel sounds. EXTREMITIES: Normal range of motion. No edema. There is tenderness to palpation of the left wrist there is no deformity no laceration, SKIN: Warm, dry, no rash. NEURO: No focal deficits. Alert and oriented x3. PSYCH: Normal mood and affect. Course Vital Signs Vital signs: Vital Signs Temperature 36.6 C 02/27/23 17:37 Pulse Rate 98 02/27/23 17:37 Respiratory Rate 02/27/23 17:37 Blood Pressure 106/72 02/27/23 17:37 Pulse Oximetry 100 02/27/23 17:37 Oxygen Delivery Room Air 02/27/23 17:37 Temperature 36.6 C 02/27/23 17:37 Pulse Rate 98 02/27/23 17:37 Respiratory Rate 02/27/23 17:37 Blood Pressure 106/72 02/27/23 17:37 Pulse Oximetry 100
[2023-02-27 20:21] VITALS: BP 151/90; PULSE 90; RESP 18; O2SAT 100
== END 2023-02-27 20:23 | disposition home or self-care (01) ==
PROVIDERS: Emergency Provider Emergency Medicine; PCP Internal Medicine Infectious Disease
DX: S63.502A Unspecified sprain of left wrist, initial encounter (principal); S80.02XA Contusion of left knee, initial encounter; J45.909 Unspecified asthma, uncomplicated; F32.A Depression, unspecified; F17.210 Nicotine dependence, cigarettes, uncomplicated; W10.9XXA Fall (on) (from) unspecified stairs and steps, initial encounter
CPT/HCPCS: 29125; 73110; 73562; 99284

== ENCOUNTER 2023-03-28 22:54 | Emergency (ER) | payer OTHER, SELFPAY ==
[2023-03-28 23:00] VITALS: BP 142/85; PULSE 85; RESP 14; TEMP 36.6; O2SAT 100
[2023-03-28 23:12] LABS: Basophils Absolute Auto 0.1 K/mm3 (0.0-0.1); Basophils Percent Auto 0.5 % (0.2-1.2); Eosinophils Absolute Auto 0.4 K/mm3 (0-0.3); Eosinophils Percent Auto 3.3 % (0-4.4); Hematocrit 40.3 % (37.0-47.0); Hemoglobin 13.2 g/dL (12.0-15.0); Immature Granulocyte Absolute 0.05 K/mm3 (0.00-0.031); Immature Granulocyte Percent A 0.4 % (0-0.5); Lymphocytes Absolute Auto 2.79 K/mm3 (0.9-3.2); Lymphocytes Percent Auto 21.6 % (18.3-44.2); Mean Corpuscular HGB Conc 32.8 g/dl (32-36); Mean Corpuscular Hemoglobin 30.2 pg (26-34); Mean Corpuscular Volume 92.2 fl (80-100); Mean Platelet Volume 10.5 fl (7.4-10.4); Monocytes Absolute Auto 0.6 K/mm3 (0.1-0.6); Monocytes Percent Auto 4.6 % (2.6-8.5); Neutrophils Percent Auto 69.6 % (45.5-73.1); Platelet Count Result 271 k/mm3 (150-375); Red Blood Count 4.37 M/mm3 (4.2-5.4); Red Cell Distribution Width 13.2 % (11.5-14.5); White Blood Count 12.9 K/mm3 (4.5-10.0)
[2023-03-28 23:30] LABS: Alanine Aminotransferase 33 U/L (6-35); Albumin Level 3.8 g/dL (3.5-5.1); Alkaline Phosphatase 106 U/L (38-126); Anion Gap 5 mmol/L (8-16); Aspartate Amino Transferase 26 U/L (14-36); Bilirubin,Total 0.4 mg/dL (0.2-1.3); Blood Urea Nitrogen 9 mg/dL (7-17); Calcium 8.3 mg/dL (8.4-10.2); Carbon Dioxide 28 mmol/L (22-30); Chloride 104 mmol/L (98-107); Estimated CRCL calculation 124 ml/min; Estimated Glomerular Filt Rate > 60; Glucose 125 mg/dL (65-110); Lipase 90 U/L (23-300); Potassium 3.3 mmol/L (3.4-5.0); Sodium 137 mmol/L (137-145)
[2023-03-28 23:42] LABS: Appearance Urine Clear (Clear); Bacteria Urine None Seen /hpf; Bilirubin Urine Negative (Negative); Blood Urine Negative (Negative); Color Urine Yellow (Yellow); Glucose Urine UA Negative (Negative); Ketones Urine Negative (Negative); Leukocyte Esterase Ur 1+ LEU/UL (Negative); Nitrate Urine Negative (Negative); Non Pathogenic Casts 0-2; Protein Urine Negative (Negative); RBC Urine 0-2 /hpf (0-2); Specific Grav Ur 1.018 (1.001-1.035); Squamous Epithelial Cell Urine Few /hpf (Few)
[2023-03-28 23:49] LABS: Add Urine Microscopic? YES
--- NOTE | 2023-03-29 03:06 | ED.GENADULT ---
HPI - General Adult General Chief complaint: Abdominal Pain Stated complaint: abdominal pain Time Seen by Provider: 03/29/23 02:29 History of Present Illness HPI narrative: This is a 42-year-old female presenting ED with a chief complaint of abdominal pain. Patient noticed on she started to have a crampy suprapubic abdominal pain that radiates to her back. Comes and goes and is 5/10 in intensity. She says she has experienced this many times in the past like when she has cysts on her ovaries. There are no exacerbating or alleviating symptoms. Patient notes that she does not have dysuria but has increased urinary urgency or frequency. She denies vaginal discharge irritation and recently got tested for STDs by Dr. Mauricio. Otherwise the patient denies fever, chills, nausea vomiting chest pain difficulty breathing. She has taken 600mg for pain control. Related Data Home Medications Medication Instructions Recorded Confirmed albuterol sulfate 90 mcg/actuation inhalation 08/28/20 02/12/22 aerosol inhaler famotidine 20 mg tablet 08/28/20 02/12/22 fluticasone propionate 50 intranasal 08/28/20 02/12/22 mcg/actuation nasal spray,suspension escitalopram oxalate 20 mg tablet 20 mg PO DAILY 10/13/22 (Lexapro) Allergies Allergy/AdvReac Type Severity Reaction Status Date / Time silver sulfadiazine AdvReac Rash Verified 03/24/23 15:12 [From Silvadengretta] [facility] Past Medical History Medical History Asthma Depression HSV-1 infection HSV-2 infection Screen for sexually transmitted diseases Surgical History Surgical History History of 07/29/02 11/27/07 11/20/10 w/BTL History of endometrial ablation 03/16/14 hscope d&c/novasure ablation History of hysteroscopy 08/28/01 hscope d&c History of tubal ligation 11/20/10 Family History Family History Grandparent Heart disease maternal grandmother Hypertension maternal grandmother Diabetes mellitus maternal grandfather Mother Hypertension Other Diabetes mellitus paternal aunt Social History Social History Smoking packs per day: 1 Smoking cigarettes per day: 20.0 Smoking status: Current every day smoker Tobacco type: cigarettes Alcohol intake: never Substance use: never Substance use type: does not use Lack of Transportation: No Lack of Food: Never True Current Housing: I Have Housing Concerned About Future Housing: No Difficulty Paying Gas/Electric Bills: No Difficulty Paying for Meds: No Currently Unemployed: No Education: High School Diploma/GED Difficulty w/ Childcare or Family Care: No Living arrangements: other Additional living arrangements comments: Occupation/Education: occupation 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 EYES: EOMI, NOSE: Atraumatic NECK: Trachea midline RESPIRATORY: No increased rate of breathing , clear to auscultation CARDIOVASCULAR: RRR, ABDOMINAL: obese, tenderness to palpation in the midline suprapubic area, The rest the abdomen is soft nontender without guarding or rebound. MUSCULOSKELETAl: No obvious deformities NEURO: Alert. Moving 4/4 extremities SKIN:: Warm, dry. Normal color PSYCHIATRIC: Normal affect Course Vital Signs Vital signs: Vital Signs Temperature 97.8 F 03/28/23 23:00 Pulse Rate 85 03/28/23 23:00 Respiratory Rate 14 03/28/23 23:00 Blood Pressure 142/85 H 03/28/23 23:00 Pulse Oximetry 100 03/28/23 23:00 Oxygen Delivery Room Air 03/28/23 23:00 [place]
[2023-03-29 03:50] VITALS: BP 115/66; PULSE 63; RESP 16; O2SAT 97
[2023-03-29] MEDS: ACETAMINOPHEN 500 MG TABLET 1000 MG PO (04:02)
[2023-03-29] MEDS: CEPHALEXIN 500 MG CAPSULE PO (04:02)
[2023-03-29] MEDS: POTASSIUM CHLORIDE 20 MEQ PACKET (FOR LIQUID) 40 MEQ PO (04:02)
[2023-03-29] MEDS: KETOROLAC 30 MG/ML VIAL (*BKC) 15 MG IM (04:03)
== END 2023-03-29 04:10 | disposition home or self-care (01) ==
PROVIDERS: Emergency Provider Emergency Medicine; PCP Internal Medicine Infectious Disease
DX: N39.0 Urinary tract infection, site not specified (principal); R10.2 Pelvic and perineal pain; J45.909 Unspecified asthma, uncomplicated; F32.A Depression, unspecified; F17.210 Nicotine dependence, cigarettes, uncomplicated
CPT/HCPCS: 36415; 80053; 81001; 81025; 83690; 85025; 87086; 87088; 96372; 99283; A9270; J1885

== ENCOUNTER 2023-04-07 22:19 | Emergency (ER) | payer OTHER, SELFPAY ==
--- NOTE | ~2023-04-07 | XR_ITS ---
EXAMINATION: XR chest 2V DATE: 04/07/2023 22:47 INDICATION: Chest pain. TECHNIQUE: Frontal and lateral views of the chest were obtained. COMPARISON: Chest single view 09/30/2022, CT abdomen and pelvis 09/30/2022 FINDINGS: There is no pneumonia, pleural effusion, or pneumothorax. The heart size is normal. IMPRESSION: 1. No acute cardiopulmonary disease. Reviewed, dictated and finalized at location E.
--- NOTE | 2023-04-07 22:20 | ECG_ITS ---
Measurements Intervals [place] Rate: 95 P: 40 RI: 181 QRS: 14 QRSD: 88 T: 71 QT: 324 QTc: 408 Interpretive Statements SINUS RHYTHM POSSIBLE LEFT ATRIAL ENLARGEMENT DELAYED PRECORDIAL R/S TRANSITION BORDERLINE ST-T WAVE ABNORMALITY- HIGH LATERAL LEADS BASELINE ARTIFACT- I, II, III, AVR, AVF, V1-V2 BORDERLINE ECG COMPARED TO ECG 09/30/2022 03:03:06 SINUS RHYTHM NOW PRESENT Electronically Signed On 04-08-2023 7:03:27 CDT by Tab Frye D.O.
[2023-04-07 22:22] VITALS: BP 126/64; PULSE 93; RESP 16; TEMP 36.2; O2SAT 99
[2023-04-07 22:46] LABS: Basophils Absolute Auto 0.1 K/mm3 (0.0-0.1); Basophils Percent Auto 0.5 % (0.2-1.2); Eosinophils Absolute Auto 0.2 K/mm3 (0-0.3); Eosinophils Percent Auto 1.7 % (0-4.4); Hematocrit 44.4 % (37.0-47.0); Hemoglobin 14.1 g/dL (12.0-15.0); Immature Granulocyte Absolute 0.04 K/mm3 (0.00-0.031); Immature Granulocyte Percent A 0.3 % (0-0.5); Lymphocytes Absolute Auto 2.71 K/mm3 (0.9-3.2); Lymphocytes Percent Auto 20.5 % (18.3-44.2); Mean Corpuscular HGB Conc 31.8 g/dl (32-36); Mean Corpuscular Hemoglobin 29.7 pg (26-34); Mean Corpuscular Volume 93.5 fl (80-100); Mean Platelet Volume 10.9 fl (7.4-10.4); Monocytes Absolute Auto 0.7 K/mm3 (0.1-0.6); Neutrophils Absolute Auto 9.5 K/mm3 (1.3-6.7); Platelet Count Result 330 k/mm3 (150-375); Red Blood Count 4.75 M/mm3 (4.2-5.4); Red Cell Distribution Width 13.1 % (11.5-14.5); White Blood Count 13.2 K/mm3 (4.5-10.0)
[2023-04-07 22:58] LABS: Prothrombin Time 13.4 Seconds (11.1-14.7)
[2023-04-07 22:59] LABS: Partial Thromboplastin Time 26.4 SECONDS (22.3-36.8)
[2023-04-07 23:17] LABS: Alanine Aminotransferase 65 U/L (6-35); Albumin Level 4.1 g/dL (3.5-5.1); Alkaline Phosphatase 77 U/L (38-126); Anion Gap 3 mmol/L (8-16); Aspartate Amino Transferase 53 U/L (14-36); Bilirubin,Total 0.8 mg/dL (0.2-1.3); Blood Urea Nitrogen 7 mg/dL (7-17); Calcium 8.8 mg/dL (8.4-10.2); Carbon Dioxide 26 mmol/L (22-30); Chloride 106 mmol/L (98-107); Estimated CRCL calculation 123 ml/min; Estimated Glomerular Filt Rate > 60; Glucose 113 mg/dL (65-110); Lipase 72 U/L (23-300); Potassium 3.9 mmol/L (3.4-5.0); Sodium 135 mmol/L (137-145); Troponin I < 0.012 ng/mL (0.000-0.034)
[2023-04-08 01:23] VITALS: PULSE 75
[2023-04-08 02:11] LABS: Troponin I < 0.012 ng/mL (0.000-0.034)
--- NOTE | 2023-04-08 02:18 | ED.GENADULT ---
HPI - General Adult General Chief complaint: Chest Pain Stated complaint: chest pain Time Seen by Provider: 04/08/23 01:18 History of Present Illness HPI narrative: this is a 43-year-old female presenting to ED chief complaint of chest pain. Patient states that the chest pain started this morning after she got into an argument with a family member. It is a pressure in the center of her chest that is nonradiating 7 out 10 intensity and comes and goes. He has never had pain like this before there are no exacerbating or alleviating factors. It is associated with a headache. She denies fever chills nausea vomiting, shortness of breath. Patient states she is under a significant amount of stress at home and recently had to move into a hotel room. Related Data Home Medications Medication Instructions Recorded Confirmed albuterol sulfate 90 mcg/actuation inhalation 08/28/20 02/12/22 aerosol inhaler famotidine 20 mg tablet 08/28/20 02/12/22 fluticasone propionate 50 intranasal 08/28/20 02/12/22 mcg/actuation nasal spray,suspension escitalopram oxalate 20 mg tablet 20 mg PO DAILY 10/13/22 (Lexapro) Allergies Allergy/AdvReac Type Severity Reaction Status Date / Time silver sulfadiazine AdvReac Rash Verified 04/08/23 00:23 [From Susana] [facility] Past Medical History Medical History Asthma Depression HSV-1 infection HSV-2 infection Screen for sexually transmitted diseases Surgical History Surgical History History of 07/29/02 11/27/07 11/20/10 w/BTL History of endometrial ablation 03/16/14 hscope d&c/novasure ablation History of hysteroscopy 08/28/01 hscope d&c History of tubal ligation 11/20/10 Family History Family History Grandparent Heart disease maternal grandmother Hypertension maternal grandmother Diabetes mellitus maternal grandfather Mother Hypertension Other Diabetes mellitus paternal aunt Social History Social History Smoking packs per day: 1 Smoking cigarettes per day: 20.0 Smoking status: Current every day smoker Tobacco type: cigarettes Alcohol intake: never Substance use: never Substance use type: does not use Lack of Transportation: No Lack of Food: Never True Current Housing: I Have Housing Concerned About Future Housing: No Difficulty Paying Gas/Electric Bills: No Difficulty Paying for Meds: No Currently Unemployed: No Education: High School Diploma/GED Difficulty w/ Childcare or Family Care: No Living arrangements: other Additional living arrangements comments: Occupation/Education: occupation 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 Head: atraumatic. EYES: EOMI, NOSE: Atraumatic NECK: Trachea midline RESPIRATORY: No increased rate of breathing, clear to auscultation CARDIOVASCULAR: RRR, No perpiheral edema ABDOMINAL: Non-distended MUSCULOSKELETAl: No obvious deformities NEURO: Alert. Moving 4/4 extremities SKIN:: Warm, dry. Normal color PSYCHIATRIC: patient appears sad Course Vital Signs Vital signs: Vital Signs Temperature 97.2 F L 04/07/23 22:22 Pulse Rate 93 04/07/23 22:22 Respiratory Rate 16 04/07/23 22:22 Blood Pressure 126/64 04/07/23 22:22 Pulse Oximetry 99 04/07/23 22:22 Oxygen Delivery Room Air 04/07/23 22:22 Temperature 97.2 F L 04/07/23 22:22 Pulse Rate 68 04/08/23 03:43 Respiratory Rate 20 04/08/23 03:43 Blood Pressure 134/78 04/08/23 03:43 Pulse Oximetry 98 04/08/23 03:43 Oxygen Deliv
[2023-04-08] MEDS: ACETAMINOPHEN 500 MG TABLET 1000 MG PO (02:47)
[2023-04-08] MEDS: KETOROLAC 30 MG/ML VIAL (*BKC) 15 MG IM (03:04)
[2023-04-08 03:43] VITALS: BP 134/78; PULSE 68; RESP 20; O2SAT 98
[2023-04-08 04:10] VITALS: BP 123/91; PULSE 69; RESP 16; O2SAT 99
== END 2023-04-08 04:12 | disposition home or self-care (01) ==
PROVIDERS: Emergency Provider Emergency Medicine; PCP Internal Medicine Infectious Disease
DX: R51.9 Headache, unspecified (principal); R07.9 Chest pain, unspecified; F43.9 Reaction to severe stress, unspecified; F17.210 Nicotine dependence, cigarettes, uncomplicated; J45.909 Unspecified asthma, uncomplicated; F32.A Depression, unspecified
CPT/HCPCS: 36415; 71046; 80053; 81025; 83690; 84484; 85025; 85610; 85730; 93005; 96372; 99284; A9270; J1885